=== PATIENT | female | born 1975 | race Caucasian/White ===

== ENCOUNTER → 2017-01-20 | Outpatient (CLI) | payer OTHER | END | disposition home or self-care (01) | LOC: EDSTATUS 12-18 10:12 → CFH 15:14 → EDSTATUS 15:15 | PROVIDERS: ATTEND Physician Assistant | DX: Z12.31 Encounter for screening mammogram for malignant neoplasm of breast (principal); N83.202 Unspecified ovarian cyst, left side; R92.1 Mammographic calcification found on diagnostic imaging of breast | CPT/HCPCS: 76830; 77063; G0202 ==